=== PATIENT | female | born 1975 | race Caucasian/White ===

== ENCOUNTER 2017-09-19 11:37 | Emergency (ER) | payer MEDICAID ==
[~2017-09-19] VITALS: Ht 154.9 cm; Wt 81.5 kg
[~2017-09-19 11:37] MED LIST: ALUM5LIQ PO; AMOX400S9 PO; AUGM875T PO; OXYC5 PO; PHEN1.4%S PO; RANI150T PO
[2017-09-19 11:56] VITALS: BP 125/80; PULSE 89; RESP 15; TEMP 98.5; O2SAT 99
[2017-09-19] MEDS ORDERED: IBUPROFEN 800 MG TAB PO ONE (13:30)
[2017-09-19] MEDS ORDERED: ACETAMINOPHEN/HYDROcodone 325 MG/10 MG TAB PO ONE (13:30)
--- NOTE | 2017-09-19 13:53 | RADRPT ---
EXAM DATE: 09/19/2017 1:49 PM EDT AGE/SEX: 42 years / Female INDICATIONS: Woke up with low back pain, no known trauma. CLINICAL DATA: This is the patient's initial encounter. Patient reports that signs and symptoms have been present for 1 day and indicates a pain score of 8/10. MEDICAL/SURGICAL HISTORY: None. None. COMPARISON: No prior exams available for comparison. FINDINGS: There are 5 lumbar type vertebral bodies. There is minimal loss of disc space height at L3-4 and L5-S 1. There are moderate degenerative changes of facets at L4-5. SI joints show mild degenerative changes bilaterally worse on the left. CONCLUSION: Degenerative disc disease as described above. Most significant finding is facet disease at L4-5. Electronically signed by: Darnell Perrin MD 09/19/2017 1:52 PM EDT
[2017-09-19] MEDS ORDERED: DICL75TA PO (13:59)
[2017-09-19] MEDS ORDERED: ROBA500T PO (13:59)
--- NOTE | 2017-09-19 14:04 | PD ---
HPI Chief Complaint: Back/ Neck Pain or Injury Time Seen by Provider: 13:22 Travel History International Travel<30 days: No Contact w/Intl Traveler<30days: No Traveled to known affect area: No History of Present Illness HPI 42-year-old female that presents to the ED for evaluation of lower back pain with movement. Per patient is happened last night. Per patient she woke up with this pain. Per patient she has had a little difficulty getting up without assistance secondary to the pain. Per patient she sits for a long period time she gets more pain. Otherwise she is able to ambulate. She is has to get assistance to get up secondary to the significant pain. Per patient her pain is 7 out of 10. No history of injuries to her back. No surgeries to her back. No IV drug abuse. No fevers chills or sweats. No urinary or bowel movement issues. Denies . No falls or injuries. She does do some heavy lifting at work. She denies any specific injury to cause this. She denies any numbness, tingling, weakness to the lower extremities. PFSH Past Medical History Diminished Hearing: No GERD: Yes Social History Alcohol Use: No Tobacco Use: No Substance Use: No Allergies-Medications (Allergen,Severity, Reaction): Coded Allergies: No Known Allergies (Verified Adverse Reaction, Unknown, 09/19/17) Reported Meds & Prescriptions Reported Meds & Active Scripts Active Robaxin (Methocarbamol) 500 Mg Tab 500 Mg PO TID Diclofenac Sodium DR (Diclofenac Sodium) 75 Mg Tabdr 75 Mg PO BID PRN Review of Systems Except as stated in HPI: all other systems reviewed are Neg Physical Exam Narrative GENERAL: SKIN: Warm and dry. HEAD: Atraumatic. Normocephalic. EYES: Pupils equal and round. No scleral icterus. No injection or drainage. ENT: No nasal bleeding or discharge. Mucous membranes pink and moist. Tongue is midline. No uvula deviation. NECK: Trachea midline. No JVD. CARDIOVASCULAR: Regular rate and rhythm. No murmurs, S3, S4. RESPIRATORY: No accessory muscle use. Clear to auscultation. Breath sounds equal bilaterally. GASTROINTESTINAL: Abdomen soft, non-tender, nondistended. Hepatic and splenic margins not palpable. MUSCULOSKELETAL: Extremities without clubbing, cyanosis, or edema. No obvious deformities. Tender to palpation on the lumbar spine in the musculature of the lumbar area. Straight leg test negative bilaterally. 2+ pulses bilaterally. Sensation intact bilaterally. No thoracic or cervical spine tenderness to palpation. Pain reproducible with flexion of the back otherwise minimal discomfort other than with touch. No obvious discoloration or deformity noted. NEUROLOGICAL: Awake and alert. No obvious cranial nerve deficits. Motor grossly within normal limits. Five out of 5 muscle strength in the arms and legs. Normal speech. PSYCHIATRIC: Appropriate mood and affect; insight and judgment normal. Data Data Last Documented VS Vital Signs Date Time Temp Pulse Resp B/P (MAP) Pulse Ox O2 Delivery O2 Flow Rate FiO2 09/19/17 11:56 98.5 89 15 125/80 (95) 99 Orders Orders Acetamin-Hydrocod 325-10 Mg (Crane 10-32 (09/19/17 13:30) Ibuprofen (Motrin) (09/19/17 13:30) Spine, Lumbar Comp W/Obliq (09/19/17 ) MDM Medical Decision Making Medical Screen Exam Complete: Yes Emergency Medical Condition: Yes Medical Record Reviewed: Yes Interpretation(s) Last Impressions Lumbar Spine X-Ray 09/19/17 0000 Signed Impressions: CONCLUSION: Degenerative disc disease as described above. Most significant finding is facet disease at L4-5. Differential Diagnosis Back pain versus muscle strain versus muscle spasm versus fracture Narrative Course 42-year-old female that presents to the ED for evaluation of lower back pain. Patient was properly examined and was found to have signs and symptoms consistent appears to be muscular skeletal pain. X-ray was done and was negative for acute disease. She does appear to have some chronic changes. At this time I believe that her symptoms are more related to muscle strain. Patient was given medications here with some relief. This time patient will be discharged home with prescriptions for baclofen sodium and Robaxin. Told to follow closely with PCP. Given note for work. See ED if worsening symptoms. Diagnosis Primary Impression: Acute lumbar myofascial strain Qualified Codes: S39.012A - Strain of muscle, fascia and tendon of lower back , initial encounter Patient Instructions: General Instructions Departure Forms: Tests/Procedures, Work Release Special Instructions: Patient is suffering from significant back pain. Patient able to work but needs to do light duty. Preferably no heavy lifting more than 5 pounds. Preferably if patient can do a sitting job will be preferable. This restrictions will be present until September 23, 2017 or better. Additional Instructions: Take medications as prescribed. Follow-up with PCP. See ED for any worsening symptoms. Do not drink or drive while taking pain medication. Apply ice or heat as needed for pain Med/Other Pt SpecificInfo: Prescription(s) given Scripts Methocarbamol (Robaxin) 500 Mg Tab 500 MG PO TID for Muscle Spasm, #20 TAB 0 Refills Prov: Adiel Resendiz MD 09/19/[address] (Diclofenac Sodium DR) 75 Mg Tabdr 75 MG PO BID Y for PAIN SCALE 1 TO 10, #20 TAB 0 Refills Prov: Adiel Resendiz MD 09/19/17 Disposition: 01 DISCHARGE HOME Condition: Stable Tip Bernstein Sep 19, 2017 14:04
== END 2017-09-19 14:27 | disposition home or self-care (01) ==
LOC: NEPK 11:37
DX: S39.012A Strain of muscle, fascia and tendon of lower back, initial encounter (principal); X58.XXXA Exposure to other specified factors, initial encounter
CPT/HCPCS: 72110; 99283

== ENCOUNTER 2017-10-02 18:35 | Observation (INO) | payer MEDICAID ==
[~2017-10-02] VITALS: Ht 154.9 cm; Wt 77.0 kg
[~2017-10-02 18:35] MED LIST changes: -ALUM5LIQ PO; -AMOX400S9 PO; -AUGM875T PO; +DICL75TA PO; -OXYC5 PO; -PHEN1.4%S PO; -RANI150T PO; +ROBA500T PO
[2017-10-02 18:43] VITALS: BP 132/84; PULSE 104; RESP 18; TEMP 99.4; O2SAT 99
[2017-10-02 19:20] VITALS: RESP 20
[2017-10-02 19:26] VITALS: BP 136/95; PULSE 97; RESP 20; O2SAT 97
--- NOTE | 2017-10-02 19:35 | RADRPT ---
EXAM DATE: AGE/SEX: 42 years / Female INDICATIONS: Nausea and vomiting. CLINICAL DATA: This is the patient's initial encounter. Patient reports that signs and symptoms have been present for 1 day and indicates a pain score of 0/10. MEDICAL/SURGICAL HISTORY: None. None. COMPARISON: [facility] [place]ST SINGLE AP, 12/10/2015. . FINDINGS: A single AP view of the chest demonstrates the lungs to be symmetrically aerated without evidence of mass, infiltrate or effusion. The cardiomediastinal contours are unremarkable. Osseous structures a re intact. CONCLUSION: No active disease. Electronically signed by: Jose Eduardo Mensah MD 10/02/2017 7:34 PM EDT
--- NOTE | 2017-10-02 19:44 | PD ---
HPI Chief Complaint: GI Complaint Time Seen by Provider: 19:12 Travel History International Travel<30 days: No Contact w/Intl Traveler<30days: No Traveled to known affect area: No History of Present Illness HPI The patient is a 42 year old female who presents to the [facility] emergency department with a history of problems with heartburn that have progressively been getting worse over the last month. She denies having any problems with heartburn prior to this. She reports that over the last week she has had difficulty eating any food as the heartburn worsens and then she vomits. She reports that today she has not even been able to keep down liquids. The patient denies taking any wkeo-swb-lmpelzj heartburn medication. She denies taking any tgqo-sry-iowkoca pain relievers or anti-inflammatory pain medications on a regular basis. She denies drinking any alcohol. She denies having any diarrhea associated with this. She reports having a midepigastric abdominal pain associated with this. She also has a burning sensation in her chest associated with this. She denies having any known recent fevers. She reports that at times the cough will proceed the vomiting. She reports that she has been bringing up clear mucus. She denies having any hematemesis, blood in her stool, or black or tarry stools. Her last bowel movement was earlier today. On review of systems otherwise, the patient denies having any recent problems with congestion, weight loss, night sweats, neck pain, chest pain, shortness of breath, urinary symptoms, or neurologic symptoms. LMP: August 28, 2017 [facility] Past Medical History Narrative Medical The patient's past medical history is reportedly none. Medical History: Denies Significant Hx Diminished Hearing: No GERD: Yes Immunizations Current: Yes Tetanus Vaccination: Unknown Influenza Vaccination: No ?: Not LMP: 08-28-17 Past Surgical History Narrative Surgical The patient's past surgical history is significant for left wrist ORIF Other Surgery: Yes Social History Alcohol Use: No Tobacco Use: No Substance Use: No Allergies-Medications (Allergen,Severity, Reaction): Coded Allergies: No Known Allergies (Verified Adverse Reaction, Unknown, 10/02/17) Reported Meds & Prescriptions Reported Meds & Active Scripts Active Zofran Odt (Ondansetron Odt) 4 Mg Tab 4 Mg SL Q6HR PRN Ranitidine (Ranitidine HCl) 150 Mg Tab 150 Mg PO BID Review of Systems Except as stated in HPI: all other systems reviewed are Neg General / Constitutional: No: Fever Eyes: No: Visual changes HENT: No: Headaches Cardiovascular: No: Chest Pain or Discomfort Respiratory: No: Shortness of Breath Gastrointestinal: Positive: Nausea, Vomiting, Abdominal Pain, Indigestion, No: Diarrhea, Hematemesis, Hematochezia, Changes in Bowel Habits, Loss of Appetite Genitourinary: No: Dysuria Musculoskeletal: No: Pain Skin: No Rash Neurologic: No: Weakness, Focal Abnormalities, Change in Mentation, Slurred Speech, Sensory Disturbance Psychiatric: No: Depression Endocrine: No: Polydipsia Hematologic/Lymphatic: No: Easy Bruising Physical Exam Narrative General: The patient is a well-developed well-nourished female in no acute distress. Head and Neck exam: Head is normocephalic atraumatic. Eyes: EOMI, pupils are equal round and reactive to light. Nose: Midline septum with pink mucous membranes Mouth: Dentition unremarkable. Moist mucus membranes. Posterior oropharynx is not erythematous. No tonsillar hypertrophy. Uvula midline. Airway patent. Neck: No palpable lymphadenopathy. No nuchal rigidity. No thyromegaly. Cardiovascular: Regular rate and rhythm without murmurs, gallops, or rubs. No pulse deficit to the extremities on simultaneous auscultation and palpation of her radial artery. Lungs: Clear to auscultation bilaterally. No wheezes, rhonchi, or rales. Abdomen: Soft, with tenderness on palpation of the midepigastric area, no other tenderness on palpation of the other quadrants of the abdomen. No guarding, rebound, or rigidity. Normal bowel sounds are audible. No tenderness on palpation of McBurney's point. Negative Lunsford sign. Extremities: No clubbing, cyanosis, or edema. 2+ pulses in all 4 extremities. No calf tenderness on palpation peer Back: No spinous process tenderness to palpation. No costovertebral angle tenderness to palpation. Neurologic Exam: Grossly nonfocal. Skin Exam: No rash noted. Intact skin that is warm and dry. Data Data Last Documented VS Vital Signs Date Time Temp Pulse Resp B/P (MAP) Pulse Ox O2 Delivery O2 Flow Rate FiO2 10/02/17 23:02 82 20 137/86 (103) 97 Room Air 10/02/17 18:43 99.4 Orders Orders Electrocardiogram (10/02/17 19:13) Complete Blood Count With Diff (10/02/17 19:13) Comprehensive Metabolic Panel (10/02/17 19:13) Creatine Kinase (Cpk) (10/02/17 19:13) Ckmb (Isoenzyme) Profile (10/02/17 19:13) Troponin I (10/02/17 19:13) C-Reactive Protein (Crp) (10/02/17 19:13) Lipase (10/02/17 19:13) Urinalysis - C+S If Indicated (10/02/17 19:13) Chest, Single Ap (10/02/17 19:13) Iv Access Insert/Monitor (10/02/17 19:13) Ecg Monitoring (10/02/17 19:13) Oximetry (10/02/17 19:13) Ed Urine Pregnancytest Poc (10/02/17 19:13) Ondansetron Odt (Zofran Odt) (10/02/17 19:45) Sodium Chlor 0.9% 1000 Ml Inj (Ns 1000 M (10/02/17 19:45) Al-Mag Hy-Si 40-40-4 Mg/Ml Liq (Mag-Al P (10/02/17 19:45) Pantoprazole Inj (Protonix Inj) (10/02/17 19:45) Ct Abd/Pel W Iv Contrast(Rout) (10/02/17 20:02) Oral Rehydration (10/02/17 21:46) Sodium Chlor 0.9% 1000 Ml Inj (Ns 1000 M (10/02/17 22:00) Iohexol 350 Inj (Omnipaque 350 Inj) (10/02/17 21:53) Metoclopramide Inj (Reglan Inj) (10/02/17 23:00) Admit Order (Ed Use Only) (10/02/17 23:15) Labs Laboratory Tests Test 10/02/17 19:45 10/02/17 22:40 White Blood Count 9.3 TH/MM3 Red Blood Count 4.79 MIL/MM3 Hemoglobin 14.1 GM/DL Hematocrit 42.0 % Mean Corpuscular Volume 87.6 FL Mean Corpuscular Hemoglobin 29.4 PG Mean Corpuscular Hemoglobin Concent 33.6 % Red Cell Distribution Width 13.4 % Platelet Count 452 TH/MM3 Mean Platelet Volume 7.0 FL Neutrophils (%) (Auto) 66.9 % Lymphocytes (%) (Auto) 25.5 % Monocytes (%) (Auto) 5.4 % Eosinophils (%) (Auto) 1.8 % Basophils (%) (Auto) 0.4 % Neutrophils # (Auto) 6.2 TH/MM3 Lymphocytes # (Auto) 2.4 TH/MM3 Monocytes # (Auto) 0.5 TH/MM3 Eosinophils # (Auto) 0.2 TH/MM3 Basophils # (Auto) 0.0 TH/MM3 CBC Comment DIFF FINAL Differential Comment Blood Urea Nitrogen 8 MG/DL Creatinine 0.85 MG/DL Random Glucose 103 MG/DL Total Protein 8.0 GM/DL Albumin 3.9 GM/DL Calcium Level 8.9 MG/DL Alkaline Phosphatase 66 U/L Aspartate Amino Transf (AST/SGOT) 7 U/L Alanine Aminotransferase (ALT/SGPT) 17 U/L Total Bilirubin 0.3 MG/DL Sodium Level 140 MEQ/L Potassium Level 3.9 MEQ/L Chloride Level 107 MEQ/L Carbon Dioxide Level 21.9 MEQ/L Anion Gap 11 MEQ/L Estimat Glomerular Filtration Rate 73 ML/MIN Total Creatine Kinase 52 U/L Troponin I LESS THAN 0.02 NG/ML C-Reactive Protein 1.60 MG/DL Lipase 120 U/L Urine Color YELLOW Urine Turbidity HAZY Urine pH 6.0 Urine Specific Douglas 1.053 Urine Protein NEG mg/dL Urine Glucose (UA) NEG mg/dL Urine Ketones TRACE mg/dL Urine Occult Blood SMALL Urine Nitrite NEG Urine Bilirubin NEG Urine Urobilinogen LESS THAN 2 mg/dL Urine Leukocyte Esterase LARGE Urine RBC 4 /hpf Urine WBC 4 /hpf Urine Squamous Epithelial Cells 14 /hpf Urine Bacteria RARE /hpf Urine Mucus FEW /lpf Microscopic Urinalysis Comment CULT NOT INDICATED MDM Medical Decision Making Medical Screen Exam Complete: Yes Emergency Medical Condition: Yes Medical Record Reviewed: Yes Differential Diagnosis Viral syndrome, versus acid reflux, versus aspiration pneumonia, versus acute coronary syndrome, versus pancreatitis Narrative Course During the course of the patient's emergency department visit, the patient's history, examination, and differential diagnosis were reviewed with the patient. The patient was placed on a sap specialist with oximetry and frequent blood pressure monitoring. The patient had IV access obtained and blood work sent for analysis. The patient had an EKG done on arrival. The patient's EKG shows a sinus rhythm heart rate of 94, QRS duration 83 ms, QTC [address] segment elevation is noted. T waves are inverted in V1, lead III. The patient was initially provided normal saline 1 L IV fluid bolus, Zofran 4 mg ODT, Maalox 30 mL p.o. 1. The patient was given Protonix 40 mg IV. The patient's laboratory studies were reviewed and remarkable for a white count of 9.3, hemoglobin 14.1, platelets 452 within normal differential, CMP is remarkable for GFR 73, AST 7, cardiac enzymes within normal limits, lipase within normal limits, C-reactive protein 1.60. Urinalysis showed hazy urine increased specific gravity with trace ketones small occult blood for RBCs 14 squamous epithelial cells suggesting contaminant, rare bacteria, culture not indicated. Radiology studies were reviewed and remarkable for Last Impressions Abdomen/Pelvis CT 10/02/172001 Signed Impressions: CONCLUSION: 1. No acute findings. Small hiatal hernia. No obstruction, free fluid or free air. 2. 1.8 cm left ovarian cyst. Mild fatty liver. 3. 2 cm gallstone. Chest X-Ray 10/02/171912 Signed Impressions: CONCLUSION: No active disease. The patient continued to have vomiting in spite of multiple antiemetic doses. The patient will be admitted to the hospital for intractable vomiting for IV fluids and nausea medication. The patient's results were discussed with the patient, including the plan of care. I explained that further testing and/ or monitoring is indicated based on the patient's history, examination, and/ or laboratory findings. Therefore, I recommended admission for additional evaluation. The patient expressed understanding and was agreeable with this plan. The patient was admitted to the hospital in stable condition and sent to a bed under the care of the family practice residents. Physician Communication Physician Communication The patient's case including history, pertinent physical examination findings, and laboratory studies were discussed with the family practice residents. It was agreed that the patient would be admitted to the family practice service. Diagnosis Primary Impression: Abdominal pain Qualified Codes: R10.13 - Epigastric pain Additional Impression: Vomiting Qualified Codes: R11.2 - Nausea with vomiting, unspecified Admitting Information Admitting Physician Requests: Yarely Brice MD Oct 02, 2017 19:43
[2017-10-02] MEDS ORDERED: PANTOPRAZOLE SODIUM 40 MG VIAL IV PUSH ONE (19:45)
[2017-10-02] MEDS ORDERED: ALUMINUM/MAGNESIUM/SIMETH 30 ML CUP PO ONE (19:45)
[2017-10-02] MEDS ORDERED: SODIUM CHLOR 0.9% 1000 ML INJ 1,000 ML IV ONE ×2 (19:45→22:00)
[2017-10-02] MEDS ORDERED: ONDANSETRON ODT 4 MG TAB PO ONE (19:45)
[2017-10-02 19:54] LABS: AUTOMATED NEUTROPHIL # 6.2 TH/MM3 (1.8-7.7); BASOPHIL % 0.4 % (0.0-2.0); EOSINOPHIL # 0.2 TH/MM3 (0-0.4); EOSINOPHIL % 1.8 % (0.0-4.0); HEMOGLOBIN 14.1 GM/DL (11.6-15.3); LYMPH % 25.5 % (9.0-44.0); LYMPHOCYTE # 2.4 TH/MM3 (1.0-4.8); MEAN CELL VOLUME 87.6 FL (80.0-100.0); MEAN CORPUSCULAR HEMOGLOBIN 29.4 PG (27.0-34.0); MEAN CORPUSCULAR HGB CONC 33.6 % (32.0-36.0); MONO % 5.4 % (0.0-8.0); MONOCYTE # 0.5 TH/MM3 (0-0.9); NEUT % 66.9 % (16.0-70.0); PLATELET COUNT 452 TH/MM3 (150-450); RED BLOOD COUNT 4.79 MIL/MM3 (4.00-5.30); RED CELL DISTRIBUTION WIDTH 13.4 % (11.6-17.2); WHITE BLOOD COUNT 9.3 TH/MM3 (4.0-11.0)
[2017-10-02 20:09] LABS: ALBUMIN 3.9 GM/DL (3.4-5.0); AST (GOT) 7 U/L (15-37); BICARBONATE 21.9 MEQ/L (21.0-32.0); BLOOD UREA NITROGEN 8 MG/DL (7-18); CALCIUM 8.9 MG/DL (8.5-10.1); CHLORIDE 107 MEQ/L (98-107); CREATININE 0.85 MG/DL (0.50-1.00); GLOMERULAR FILTRATION RATE 73 ML/MIN (>89); GLUCOSE,RANDOM 103 MG/DL (74-106); SODIUM (NA) 140 MEQ/L (136-145)
[2017-10-02 20:10] LABS: ALT (GPT) 17 U/L (10-53)
[2017-10-02 20:14] LABS: ALKALINE PHOSPHATASE 66 U/L (45-117); TOTAL BILIRUBIN ADULT 0.3 MG/DL (0.2-1.0); TROPONIN I LESS THAN 0.02 NG/ML (0.02-0.05)
[2017-10-02] MEDS ORDERED: ZOFR4TAB3 SL (21:48)
[2017-10-02] MEDS ORDERED: RANI150T PO (21:48)
[2017-10-02] MEDS ORDERED: IOHEXOL 350 MG/ML 10 ML VIAL (for RAD DIAG) IVCONTRAST ONE (21:53)
[2017-10-02 22:00] VITALS: BP 129/76; PULSE 88; RESP 20; O2SAT 97
--- NOTE | 2017-10-02 22:05 | RADRPT ---
EXAM DATE: 10/02/2017 9:52 PM EDT AGE/SEX: 42 years / Female INDICATIONS: Abdominal pain with nausea and vomiting X one week. CLINICAL DATA: This is the patient's initial encounter. Patient reports that signs and symptoms have been present for 1 week and indicates a pain score of 7/10. MEDICAL/SURGICAL HISTORY: Gastroesophageal reflux disease. None. ORAL CONTRAST: No oral contrast ingested. RADIATION DOSE: 8.79 CTDI (mGy) COMPARISON: No prior exams available for comparison. TECHNIQUE: Multiple contiguous axial images were obtained through the abdomen and pelvis following b olus infusion of 96 ml Omnipaque 350 (iohexol) nonionic water-soluble contrast as a single exam dos e. No oral contrast ingested. Using automated exposure control and adjustment of the mA and/or kV ac cording to patient size, radiation dose was kept as low as reasonably achievable to obtain optimal di agnostic quality images. DICOM format image data is available electronically for review and comparis on. FINDINGS: Lung bases are clear. Mild fatty liver. Small hiatal hernia. Spleen, adrenals, kidneys and pancreas u nremarkable. Gallstone in gallbladder. No biliary ductal dilatation. No free fluid. No bowel obstruction. No adenopathy. 1.8 cm cyst left ovary. CONCLUSION: 1. No acute findings. Small hiatal hernia. No obstruction, free fluid or free air. 2. 1.8 cm left ovarian cyst. Mild fatty liver. 3. 2 cm gallstone. Electronically signed by: Jose Eduardo Mensah MD 10/02/2017 10:04 PM EDT
[2017-10-02] MEDS ORDERED: METOCLOPRAMIDE HCL 10 MG/2 ML VIAL IV PUSH ONE (23:00)
[2017-10-02 23:02] VITALS: BP 137/86; PULSE 82; RESP 20; O2SAT 97
[2017-10-02 23:10] LABS: BACTERIA, URINE RARE /hpf; BILIRUBIN, URINE NEG (NEG); BLOOD, URINE SMALL (NEG); GLUCOSE,URINE NEG (NEG); KETONE, URINE TRACE mg/dL (NEG); MUCUS URINE FEW /lpf (OCC); NITRITE,URINE NEG (NEG); SQUAMOUS EPITHELIAL CELL URINE 14 /hpf (0-5); URINE COLOR YELLOW (YELLW/STRAW); URINE LEUKOCYTE ESTERASE LARGE (NEG)
--- NOTE | 2017-10-02 23:47 | HHI.HP ---
[facility] Service Family Medicine Primary Care Physician No Primary Care Physician Admission Diagnosis Intractable vomiting Diagnoses: International Travel<30 Days: No Contact w/Intl Traveler<30days: No Known Affected Area: No History of Present Illness Ms. Joy is a 42 y/o F presenting to the ED with N/V for the past week. Patient states that about a week ago she was unable to keep any solid food down. This progressed until today where she was unable to keep any liquids down. She states that she would vomit every day when she tried to eat up to 3 times per day. She continued to try to eat, however if she does not she reports that her heartburn increases causing her discomfort. The vomiting is nonbloody and consists of what she just tried to eat/drink. She endorses having a sore throat as well likely due to her constant vomiting. She goes on to state that it is difficult for her to swallow solid foods despite increased chewing or drinking while swallowing. She denies any chills, fever, dysuria, or constant ABD pain. She continues to void regularly with regular stooling of semisolid BMs which she reports is her baseline. She reports no recent medications use. She reports no other alleviating or aggravating factors. (Chace Wright MD R2) Review of Systems Constitutional: DENIES: Fever, Weight gain, Weight loss, Chills Eyes: DENIES: Blurred vision, Double Vision Ears, nose, mouth, throat: DENIES: Running Nose Respiratory: DENIES: Cough, Shortness of breath Cardiovascular: DENIES: Chest pain, Syncope Gastrointestinal: COMPLAINS OF: Abdominal pain, Nausea, Vomiting, Difficulty Swallowing, DENIES: Black stools, Bloody stools, Constipation, Diarrhea Genitourinary: DENIES: Urinary frequency, Hematuria, Dysuria Musculoskeletal: DENIES: Joint pain, Muscle aches Integumentary: DENIES: Rash Hematologic/lymphatic: DENIES: Lymphadenopathy Immunologic/allergic: DENIES: Urticaria Neurologic: DENIES: Headache Psychiatric: DENIES: Mood changes (Chace Wright MD R2) Past Family Social History Past Medical History No reported medical issues Past Surgical History L wrist fixation (Chace Wright MD R2) Allergies: Coded Allergies: No Known Allergies (Verified Adverse Reaction, Unknown, 10/02/17) Family History Reports breast cancer, pancreas cancer, and colon cancer runs in the family as well as DM. Social History Lives with her and daughter. Currently unemployed, but starting new job tomorrow evening. Tobacco - No reported tobacco history Alcohol - No reported alcohol use Illicit - No reported illicit drug use (Chace Wright MD R2) Physical Exam Vital Signs Vital Signs Date Time Temp Pulse Resp B/P (MAP) Pulse Ox O2 Delivery O2 Flow Rate FiO2 10/02/17 23:02 82 20 137/86 (103) 97 Room Air 10/02/17 22:00 88 20 129/76 (93) 97 Room Air 10/02/17 19:26 97 20 136/95 (109) 97 Room Air 10/02/17 19:20 20 10/02/17 18:43 99.4 104 18 132/84 (100) 99 Physical Exam GENERAL: Well-nourished, well-developed female lying in bed in no acute distress. SKIN: Warm and dry. No rash. Mildly delayed capillary refill. Skin tenting. HEENT: Atraumatic, normocephalic with extraocular motions intact. Oropharynx clear, membranes dry. No rhinorrhea. No visible lymphadenopathy or jugulovenous distension appreciated. CARDIOVASCULAR: Regular rate and rhythm without obvious murmurs, gallops, or rubs. 2+ pulses in all four extremities. RESPIRATORY: Clear to auscultation bilaterally with no crackles, wheezes, or rhonchi. No increased work of breathing. GASTROINTESTINAL: Abdomen soft, nondistended with positive bowel sounds in all 4 quadrants. Patient mildly tender to the epigastric area, otherwise negative. No rebound tenderness or guarding. No fluid wave appreciated. No masses appreciated. MUSCULOSKELETAL: No cyanosis or edema. No calf tenderness. Ambulating well without assistance. No CVA tenderness. NEURO/PSYCH: Afocal. Awake, alert, and oriented x3. Normal speech and judgement. Laboratory Laboratory Tests Test 10/02/17 19:45 10/02/17 22:40 White Blood Count 9.3 Red Blood Count 4.79 Hemoglobin 14.1 Hematocrit 42.0 Mean Corpuscular Volume 87.6 Mean Corpuscular Hemoglobin 29.4 Mean Corpuscular Hemoglobin Concent 33.6 Red Cell Distribution Width 13.4 Platelet Count 452 Mean Platelet Volume 7.0 Neutrophils (%) (Auto) 66.9 Lymphocytes (%) (Auto) 25.5 Monocytes (%) (Auto) 5.4 Eosinophils (%) (Auto) 1.8 Basophils (%) (Auto) 0.4 Neutrophils # (Auto) 6.2 Lymphocytes # (Auto) 2.4 Monocytes # (Auto) 0.5 Eosinophils # (Auto) 0.2 Basophils # (Auto) 0.0 CBC Comment DIFF FINAL Differential Comment Blood Urea Nitrogen 8 Creatinine 0.85 Random Glucose 103 Total Protein 8.0 Albumin 3.9 Calcium Level 8.9 Alkaline Phosphatase 66 Aspartate Amino Transf (AST/SGOT) 7 Alanine Aminotransferase (ALT/SGPT) 17 Total Bilirubin 0.3 Sodium Level 140 Potassium Level 3.9 Chloride Level 107 Carbon Dioxide Level 21.9 Anion Gap 11 Estimat Glomerular Filtration Rate 73 Total Creatine Kinase 52 Troponin I LESS THAN 0.02 C-Reactive Protein 1.60 Lipase 120 Urine Color YELLOW Urine Turbidity HAZY Urine pH 6.0 Urine Specific [place] 1.053 Urine Protein NEG Urine Glucose (UA) NEG Urine Ketones TRACE Urine Occult Blood SMALL Urine Nitrite NEG Urine Bilirubin NEG Urine Urobilinogen LESS THAN 2 Urine Leukocyte Esterase LARGE Urine RBC 4 Urine WBC 4 Urine Squamous Epithelial Cells 14 Urine Bacteria RARE Urine Mucus FEW Microscopic Urinalysis Comment CULT NOT INDICATED (Chace Wright MD R2) Result Diagram: 10/02/17194410/02/171944 Imaging Last 72 hours Impressions Abdomen/Pelvis CT 10/02/172001 Signed Impressions: CONCLUSION: 1. No acute findings. Small hiatal hernia. No obstruction, free fluid or free air. 2. 1.8 cm left ovarian cyst. Mild fatty liver. 3. 2 cm gallstone. Chest X-Ray 10/02/171912 Signed Impressions: CONCLUSION: No active disease. (Chace Wright MD R2) Caprini VTE Risk Assessment Caprini VTE Risk Assessment: Mod/High Risk (score >= 2) Caprini Risk Assessment Model Point Value = 1 Point Value = 2 Point Value = 3 Point Value = 5 Age 41-60 Minor surgery BMI > 25 kg/m2 Swollen legs Varicose veins or History of unexplained or recurrent spontaneous Oral contraceptives or hormone replacement Sepsis (< 1 month) Serious lung disease, including pneumonia (< 1 month) Abnormal pulmonary function Acute myocardial infarction Congestive heart failure (< 1 month) History of inflammatory bowel disease Medical patient at bed rest Age 61-74 Arthroscopic surgery Major open surgery (> 45 min) Laparoscopic surgery (> 45 min) Malignancy Confined to bed (> 72 hours) Immobilizing plaster cast Central venous access Age >= 75 History of VTE Family history of VTE Factor V Leiden Prothrombin [id number] Lupus anticoagulant Anticardiolipin antibodies Elevated serum homocysteine Heparin-induced thrombocytopenia Other congenital or acquired thrombophilia Stroke (< 1 month) Elective arthroplasty Hip, pelvis, or leg fracture Acute spinal cord injury (< 1 month) Prophylaxis Regimen Total Risk Factor Score Risk Level Prophylaxis Regimen 0-1 Low Early ambulation 2 Moderate Order ONE of the following: *Sequential Compression Device (SCD) *Heparin 5000 units SQ BID 3-4 Higher Order ONE of the following medications: *Heparin 5000 units SQ TID *Enoxaparin/Lovenox 40 mg SQ daily (WT < 150 kg, CrCl > 30 mL/min) *Enoxaparin/Lovenox 30 mg SQ daily (WT < 150 kg, CrCl > 10-29 mL/min) *Enoxaparin/Lovenox 30 mg SQ BID (WT < 150 kg, CrCl > 30 mL/min) AND/OR *Sequential Compression Device (SCD) 5 or more Highest Order ONE of the following medications: *Heparin 5000 units SQ TID (Preferred with Epidurals) *Enoxaparin/Lovenox 40 mg SQ daily (WT < 150 kg, CrCl > 30 mL/min) *Enoxaparin/Lovenox 30 mg SQ daily (WT < 150 kg, CrCl > 10-29 mL/min) *Enoxaparin/Lovenox 30 mg SQ BID (WT < 150 kg, CrCl > 30 mL/min) AND *Sequential Compression Device (SCD) (Chace Wright MD R2) Assessment and Plan Assessment and Plan Mrs. Joy is a 42-year-old female presenting with nausea/vomiting admitted for fluid rehydration. Code Status FULL CODE Discussed Condition With Dr. Camilo ED MD (Chace Wright MD R2) Attending Attestation THIS CASE WAS DISCUSSED WITH THE RESIDENT PHYSICIAN. I HAVE REVIEWED THE RECORD AND AGREE WITH THE ABOVE NOTE AND PLAN OF CARE WAS DISCUSSED. I HAVE AUTHORIZED THE ORDER FOR PLACEMENT IN OUT-PATIENT OBSERVATION STATUS. (Kaity Stewart MD) Problem List: (1) Vomiting ICD Codes: R11.10 - Vomiting, unspecified Status: Acute Plan: Patient admitted for IV hydration she has had nausea with vomiting for the last week. Patient reporting difficulty swallowing with solids. Discussed possible gastroenterology consult. Patient would like to attempt trial of clear liquid diet in the morning with possible solids for lunch and hopes to being discharged with outpatient follow-up. -Abdominal pelvis CT: No acute findings, small hiatal hernia, no obstruction or free fluid/air. 1.8 cm left ovarian cyst. Mild fatty liver. 2 cm gallstone. -Chest x-ray: No acute disease -CBC: Within normal limits -CMP: Within normal limits -Magnesium: 2.2 -Phosphorus 2.7 -Albumin 3.9 -Lipase 120 -Troponin: Less than 0.02 -CRP: 1.6 Medications: -Patient received 2 L normal saline boluses in ED -Patient received 1 dose of Zofran, Reglan, Protonix, and Maalox in the ED -Continue Zofran 4 mg every 6 hours as needed for nausea/vomiting -Continue Protonix 40 mg daily -Normal saline at 170 mL/h (1.5 MF) (2) UTI (urinary tract infection) ICD Codes: N39.0 - Urinary tract infection, site not specified Status: Acute Plan: Patient presenting with dehydration secondary to nausea/vomiting found to have possible UTI. Patient endorses no hematuria, CVA tenderness, or fevers at this time. -Patient currently does not meet SIRS/sepsis criteria -UA: Hazy, specific gravity 1.053, trace ketones, small occult blood, large leukocyte esterase, 4 RBC, rare bacteria, few mucus -Urine culture ordered -CBC: WBC 9.3 with 66.9% neutrophils Medications: -Plan to treat for possible UTI with Macrobid 100 mg twice daily for 7 days -Normal saline at 170 mL/h (1.5 MF) (3) Nutrition, metabolism, and development symptoms ICD Codes: R63.8 - Other symptoms and signs concerning food and fluid intake Status: Acute Plan: -Fluids: Normal saline at 170 mL/h -Electrolytes: Within normal limits -Prophylaxis: Zofran as needed for nausea/vomiting, Protonix for GERD, DuoNeb's as needed for shortness of breath, clonidine as needed for blood pressure greater than 180/110, incentive spirometry (4) DVT prophylaxis Status: Acute Plan: -SCDs -Early ambulation (Chace Wright MD R2) Problem Qualifiers (1) Vomiting: Qualified Codes: R11.2 - Nausea with vomiting, unspecified (2) UTI (urinary tract infection): Qualified Codes: N30.00 - Acute cystitis without hematuria Chace Wright MD R2 Oct 02, 2017 23:47 Kaity Stewart MD Oct 03, 2017 13:51
[2017-10-03 00:02] VITALS: O2SAT 97
[2017-10-03] MEDS ORDERED: ONDANSETRON ODT 4 MG TAB PO PRN (00:15)
[2017-10-03] MEDS ORDERED: SODIUM CHLORIDE 0.9% FLUSH 10 ML FLUSH IV FLUSH PRN ×2 (00:15)
[2017-10-03 00:50] LABS: MAGNESIUM 2.2 MG/DL (1.5-2.5); PHOSPHORUS 2.7 MG/DL (2.5-4.9)
[2017-10-03 00:51] VITALS: BP 96/58; PULSE 82; RESP 16; TEMP 98; O2SAT 95
[2017-10-03] MEDS: SODIUM CHLOR 0.9% 1000 ML INJ 1,000 ML IV SCH ×3 (01:10→12:05)
[2017-10-03] MEDS ORDERED: cloNIDine HCL 0.1 MG TAB PO PRN (01:30)
[2017-10-03] MEDS ORDERED: RESP: ALBUTEROL 2.5 MG/IPRATROPIUM 0.5 MG NEB (PRN) NEB (01:30)
[2017-10-03] MEDS: NITROFURANTOIN MONOHYD MACROCR 100 MG CAP PO SCH ×2 (02:10→10:48)
[2017-10-03 05:19] VITALS: BP 109/51; PULSE 74; RESP 16; TEMP 98.4; O2SAT 98
[2017-10-03 07:29] VITALS: O2SAT 95
[2017-10-03 08:00] VITALS: BP 112/55; PULSE 69; RESP 16; TEMP 97.4; O2SAT 100
[2017-10-03 08:49] LABS: MAGNESIUM 2.2 MG/DL (1.5-2.5); PHOSPHORUS 2.2 MG/DL (2.5-4.9)
[2017-10-03] MEDS ORDERED: SODIUM CHLORIDE 0.9% FLUSH 10 ML FLUSH IV FLUSH SCH ×2 (09:00)
[2017-10-03] MEDS ORDERED: PANTOPRAZOLE SODIUM 40 MG VIAL IV PUSH SCH (09:00)
[2017-10-03 12:00] VITALS: BP 109/53; PULSE 76; RESP 16; TEMP 98.2; O2SAT 99
[2017-10-03 12:26] LABS: AUTOMATED NEUTROPHIL # 4.6 TH/MM3 (1.8-7.7); BASOPHIL # 0.1 TH/MM3 (0-0.2); BASOPHIL % 0.9 % (0.0-2.0); EOSINOPHIL # 0.1 TH/MM3 (0-0.4); EOSINOPHIL % 1.1 % (0.0-4.0); HEMATOCRIT 37.3 % (35.0-46.0); HEMOGLOBIN 12.7 GM/DL (11.6-15.3); MEAN CELL VOLUME 88.6 FL (80.0-100.0); MEAN CORPUSCULAR HEMOGLOBIN 30.1 PG (27.0-34.0); MEAN PLATELET VOLUME 6.8 FL (7.0-11.0); MONO % 5.8 % (0.0-8.0); MONOCYTE # 0.4 TH/MM3 (0-0.9); NEUT % 64.2 % (16.0-70.0); PLATELET COUNT 404 TH/MM3 (150-450); RED BLOOD COUNT 4.21 MIL/MM3 (4.00-5.30); RED CELL DISTRIBUTION WIDTH 13.4 % (11.6-17.2); WHITE BLOOD COUNT 7.1 TH/MM3 (4.0-11.0)
[2017-10-03] MEDS ORDERED: PANT20TA2 PO (12:32)
[2017-10-03] MEDS ORDERED: ONDA4TAB7 PO (12:32)
[2017-10-03] MEDS ORDERED: NITR100C4 PO (12:32)
--- NOTE | 2017-10-03 12:34 | HHI.DCPOC ---
Discharge Care Plan Diagnosis: (1) Vomiting (2) Abdominal pain (3) UTI (urinary tract infection) Goals to Promote Your Health * To prevent worsening of your condition and complications * To maintain your health at the optimal level Directions to Meet Your Goals Take your medications as prescribed Follow your dietary instruction Follow activity as directed Keep your appointments as scheduled Take your immunizations and boosters as scheduled If your symptoms worsen call your PCP, if no PCP go to Urgent Care Center or Emergency Room Smoking is Dangerous to Your Health. Avoid second hand smoke Call the 24-hour hour crisis hotline for domestic abuse at Goldie Conde MD R1 Oct 03, 2017 12:34
[2017-10-03 12:55] LABS: ALBUMIN 3.4 GM/DL (3.4-5.0); AST (GOT) 9 U/L (15-37); BICARBONATE 20.5 MEQ/L (21.0-32.0); BLOOD UREA NITROGEN 3 MG/DL (7-18); CALCIUM 8.4 MG/DL (8.5-10.1); CHLORIDE 110 MEQ/L (98-107); CREATININE 0.73 MG/DL (0.50-1.00); GLOMERULAR FILTRATION RATE 87 ML/MIN (>89); GLUCOSE,RANDOM 91 MG/DL (74-106); SODIUM (NA) 141 MEQ/L (136-145)
[2017-10-03 12:56] LABS: ALT (GPT) 14 U/L (10-53)
[2017-10-03 12:59] LABS: ALKALINE PHOSPHATASE 56 U/L (45-117); TOTAL BILIRUBIN ADULT 0.4 MG/DL (0.2-1.0); TOTAL PROTEIN 7.1 GM/DL (6.4-8.2)
--- NOTE | 2017-10-03 13:39 | HHI.FPPN ---
Addendum to progress note ADDENDUM Reason for addendum: Additonal documentation Additional information Please see resident H/P for further documentation of the patients history. 42 year old women with difficulty, swallowing, emesis was admitted because she was unable to tolerate PO in the emergency room. Patient reports some chronic issues with swallowing meats and feeling like her food gets stuck. She states that overnight she did well. She tolerated dinner and breakfast with no vomiting and no sensation of things getting stuck in her throat. She wants to go home and just recently was able to obtain medicaid and would like to fu as an outpatient. O. CONSTITUTIONAL/GEN: normally nourished, in NAD. EYES: conjunctiva normal, PERRLA, EOMI. ENT: Mouth and pharynx normal. NECK: thyroid midline, carotids symmetrical. LUNGS: clear A-P, respiratory effort is normal. CARDIOVASCULAR: RR without murmur or gallop. No significant edema. GI/ABD: soft without masses, without organomegaly. : no CVA tenderness NEURO: No focal deficits. Gait is normal SKIN: color normal, no rashes noted, she does have nits seen in her hair. HEME/LYMPH: no bruising, petechia or significant adenopathy MUSC: back is normal in appearance. Extremities are normal in appearance. PSYCH/MENTAL STATUS: Alert and oriented x 3. Vital Signs Date Time Temp Pulse Resp B/P (MAP) Pulse Ox O2 Delivery O2 Flow Rate FiO2 10/03/17 12:00 98.2 76 16 109/53 (71) 99 10/03/17 07:29 21 10/02/17 23:02 Room Air Laboratory Tests Test 10/02/17 19:45 10/02/17 22:40 10/03/17 06:48 10/03/17 12:00 White Blood Count 9.3 TH/MM3 7.1 TH/MM3 Red Blood Count 4.79 MIL/MM3 4.21 MIL/MM3 Hemoglobin 14.1 GM/DL 12.7 GM/DL Hematocrit 42.0 % 37.3 % Mean Corpuscular Volume 87.6 FL 88.6 FL Mean Corpuscular Hemoglobin 29.4 PG 30.1 PG Mean Corpuscular Hemoglobin Concent 33.6 % 34.0 % Red Cell Distribution Width 13.4 % 13.4 % Platelet Count 452 TH/MM3 404 TH/MM3 Mean Platelet Volume 7.0 FL 6.8 FL Neutrophils (%) (Auto) 66.9 % 64.2 % Lymphocytes (%) (Auto) 25.5 % 28.0 % Monocytes (%) (Auto) 5.4 % 5.8 % Eosinophils (%) (Auto) 1.8 % 1.1 % Basophils (%) (Auto) 0.4 % 0.9 % Neutrophils # (Auto) 6.2 TH/MM3 4.6 TH/MM3 Lymphocytes # (Auto) 2.4 TH/MM3 2.0 TH/MM3 Monocytes # (Auto) 0.5 TH/MM3 0.4 TH/MM3 Eosinophils # (Auto) 0.2 TH/MM3 0.1 TH/MM3 Basophils # (Auto) 0.0 TH/MM3 0.1 TH/MM3 CBC Comment DIFF FINAL DIFF FINAL Differential Comment Blood Urea Nitrogen 8 MG/DL 3 MG/DL Creatinine 0.85 MG/DL 0.73 MG/DL Random Glucose 103 MG/DL 91 MG/DL Total Protein 8.0 GM/DL 7.1 GM/DL Albumin 3.9 GM/DL 3.4 GM/DL Calcium Level 8.9 MG/DL 8.4 MG/DL Alkaline Phosphatase 66 U/L 56 U/L Aspartate Amino Transf (AST/SGOT) 7 U/L 9 U/L Alanine Aminotransferase (ALT/SGPT) 17 U/L 14 U/L Total Bilirubin 0.3 MG/DL 0.4 MG/DL Sodium Level 140 MEQ/L 141 MEQ/L Potassium Level 3.9 MEQ/L 3.7 MEQ/L Chloride Level 107 MEQ/L 110 MEQ/L Carbon Dioxide Level 21.9 MEQ/L 20.5 MEQ/L Anion Gap 11 MEQ/L 11 MEQ/L Estimat Glomerular Filtration Rate 73 ML/MIN 87 ML/MIN Phosphorus Level 2.7 MG/DL 2.2 MG/DL Magnesium Level 2.2 MG/DL 2.2 MG/DL Total Creatine Kinase 52 U/L Troponin I LESS THAN 0.02 NG/ML C-Reactive Protein 1.60 MG/DL Lipase 120 U/L Urine Color YELLOW Urine Turbidity HAZY Urine pH 6.0 Urine Specific [place] 1.053 Urine Protein NEG mg/dL Urine Glucose (UA) NEG mg/dL Urine Ketones TRACE mg/dL Urine Occult Blood SMALL Urine Nitrite NEG Urine Bilirubin NEG Urine Urobilinogen LESS THAN 2 mg/dL Urine Leukocyte Esterase LARGE Urine RBC 4 /hpf Urine WBC 4 /hpf Urine Squamous Epithelial Cells 14 /hpf Urine Bacteria RARE /hpf Urine Mucus FEW /lpf Microscopic Urinalysis Comment CULT NOT INDICATED INTAKE & OUTPUT 10/03/17 10/03/17 10/03/17 07:00 15:00 23:00 Intake Total 100 ml Output Total 100 ml Balance 0 ml Current Medications Medications (Trade) Dose Ordered Sig/Rufus Route PRN Reason Start Time Stop Time Status Last Admin Dose Admin Ondansetron HCl (Zofran Odt) 4 mg ONCE ONCE PO 10/02/17 19:45 10/02/17 19:46 DC 10/02/17 19:51 Sodium Chloride 1,000 ml @ 999 mls/hr BOLUS ONCE IV 10/02/17 19:45 10/02/17 20:45 DC 10/02/17 19:50 Al Hydrox/Mg Hydrox/Simethicone (Mag-Al Plus Susp Liq) 30 ml ONCE ONCE PO 10/02/17 19:45 10/02/17 19:46 DC 10/02/17 19:51 Pantoprazole Sodium (Protonix Inj) 40 mg ONCE ONCE IV PUSH 10/02/17 19:45 10/02/17 19:46 DC 10/02/17 19:50 Sodium Chloride 1,000 ml @ 1,000 mls/hr Q1H ONCE IV 10/02/17 22:00 10/02/17 22:59 DC 10/02/17 21:55 Iohexol (Omnipaque 350 Inj) 96 ml STK-MED ONCE IVCONTRAST 10/02/17 21:53 10/02/17 21:54 DC 10/02/17 21:53 Metoclopramide HCl (Reglan Inj) 5 mg ONCE ONCE IV PUSH 10/02/17 23:00 10/02/17 23:01 DC 10/02/17 23:00 Last Impressions Abdomen/Pelvis CT 10/02/172001 Signed Impressions: CONCLUSION: 1. No acute findings. Small hiatal hernia. No obstruction, free fluid or free air. 2. 1.8 cm left ovarian cyst. Mild fatty liver. 3. 2 cm gallstone. Chest X-Ray 10/02/171912 Signed Impressions: CONCLUSION: No active disease. A/P Intractable vomiting has resolved. Patient tolerating PO without any concerns. Vitals and labs stable. DWPT the results of the tests as above and dwpt in detail the need to fu with PCP and GI for continued management of these things. She likely needs and EGD. DWPT keeping her in the hospital to facilitate this and she is not interested. Since she is clinically stable and her issues can be managed as an outpatient and she has access to care through medicaid feel it is ok for her to be dc to home with fu. Patient voiced understanding. Lice -- dwpt in detail OTC lice treatment and how to eradicate the lice and nits from her hair and home. Patient seen and dw the resident team - Dr. Elton Stewart,Kaity Villela MD Oct 03, 2017 13:39
--- NOTE | 2017-10-03 23:10 | EKG ---
Date Performed: 10/02/2017 Time Performed: 19:29:02 PTAGE: 42 years EKG: Sinus rhythm NORMAL ECG Compared to PREVIOUS TRACING , QTc no longer prolonged DOCTOR: Valdemar Sanchez Interpretating Date/Time 10/03/2017 23:10:22
== END 2017-10-03 15:00 | disposition home or self-care (01) ==
LOC: NEPC 18:35 → NEDH 23:17 → NEPGCP 10-03 00:45
PROVIDERS: ADMIT Family Medicine; ATTEND Family Medicine
DX: K21.9 Gastro-esophageal reflux disease without esophagitis (principal); R10.13 Epigastric pain; R05 Cough; K44.9 Diaphragmatic hernia without obstruction or gangrene; N83.202 Unspecified ovarian cyst, left side; K76.0 Fatty (change of) liver, not elsewhere classified; K80.20 Calculus of gallbladder without cholecystitis without obstruction; R13.10 Dysphagia, unspecified; Z83.3 Family history of diabetes mellitus; Z80.3 Family history of malignant neoplasm of breast; Z80.0 Family history of malignant neoplasm of digestive organs; N30.00 Acute cystitis without hematuria; E86.0 Dehydration; R63.8 Other symptoms and signs concerning food and fluid intake; B96.89 Other specified bacterial agents as the cause of diseases classified elsewhere; B85.0 Pediculosis due to Pediculus humanus capitis
CPT/HCPCS: 71045; 74177; 80053; 81001; 82550; 83690; 83735; 84100; 84484; 84703; 85025; 86140; 87086; 93005; 94150; 96361; 96374; 96375; 96376; 97161; 99285; C9113; G0378; G8987; G8988; G8989; J2765; J7030; Q9967